=== PATIENT | male | born 1935 | race Caucasian/White ===

== ENCOUNTER → 2017-08-24 | Outpatient (CLI) | payer MEDICARE ==
[~2017-08-24] MED LIST: AEC81 PO; ATOR10TA69 PO; BACLOFEN PO; CELE200 PO; DONE10TA8 PO; ESCI10TA54 PO; EXEN10PE3 SQ; EXEN5PEN2 SQ; FERS325 PO; FINA5TAB2 PO; FURO-152 PO; GLIP5TAB11 PO; GLYB5TAB8 PO; HYDR-3421 PO; LABE200T PO; LOSA1TAB2 PO; MEMA10TA11 PO; MEMA5TAB7 PO; METF500T6 PO; MONT10TA21 PO; MULT-1203 PO; MULT-1289 PO; OMEP20TA25 PO; PRAV20TA PO; PREG150C PO; PREG50 PO; SILO4CAP PO; TRAM-355 PO; TRAM50TA4 PO; TRAZ-144 PO; VITA1CAP17 PO; VITAMIN D3 PO
== END | disposition home or self-care (01) ==
LOC: RAH 10:36
PROVIDERS: ATTEND Physical Medicine & Rehabilitation
DX: M48.062 Spinal stenosis, lumbar region with neurogenic claudication (principal)
CPT/HCPCS: 72148

== ENCOUNTER → 2017-09-06 | Outpatient (CLI) | payer MEDICARE ==
[~2017-09-06] MED LIST changes: +REGADENOSON 0.4 MG/5 ML PF SYG IVP SCH
== END | disposition home or self-care (01) ==
LOC: SHCH 07:57
PROVIDERS: ATTEND Internal Medicine Cardiovascular Disease
DX: I35.0 Nonrheumatic aortic (valve) stenosis (principal); R94.31 Abnormal electrocardiogram [ECG] [EKG]
CPT/HCPCS: 78452; 93017; 96374; A9500 ×2; J2785

== ENCOUNTER → 2017-09-08 | Outpatient (CLI) | payer MEDICARE ==
[~2017-09-08] MED LIST changes: -REGADENOSON 0.4 MG/5 ML PF SYG IVP SCH
== END | disposition home or self-care (01) ==
LOC: SHCH 07:57
PROVIDERS: ATTEND Internal Medicine Cardiovascular Disease
DX: I35.0 Nonrheumatic aortic (valve) stenosis (principal); R94.31 Abnormal electrocardiogram [ECG] [EKG]
CPT/HCPCS: 93306

== ENCOUNTER → 2017-09-09 | Outpatient (CLI) | payer MEDICARE | END | disposition home or self-care (01) | LOC: RAH 08:07 | PROVIDERS: ATTEND Internal Medicine Cardiovascular Disease | DX: N28.1 Cyst of kidney, acquired (principal); N20.0 Calculus of kidney; I10 Essential (primary) hypertension | CPT/HCPCS: 76770 ==

== ENCOUNTER → 2017-09-13 | Outpatient (CLI) | payer MEDICARE ==
[~2017-09-13] VITALS: Ht 177.8 cm; Wt 94.5 kg
[~2017-09-13] MED LIST changes: +CEFAZOLIN SODIUM 1 GM VIAL IVP SCH
[2017-09-13 09:35] VITALS: BP 122/72
[2017-09-13 09:56] LABS: BASOPHILS % (AUTO) 0.7 % (0.0-5.0); EOSINOPHILS % (AUTO) 1.6 % (0.0-8.0); HEMATOCRIT 44.3 % (42-54); MEAN CORPUSCULAR HEMOGLOBIN 31.2 pg (27.0-33.0); MEAN CORPUSCULAR HGB CONC 34.8 g/dL (32.0-36.0); MEAN CORPUSCULAR VOLUME 89.6 fL (79-99); MONOCYTES % (AUTO) 8.1 % (3.0-13.0); NEUTROPHILS % (AUTO) 71.6 % (40.0-77.0); PLATELET COUNT (AUTO) 197 K/uL (130-400); RED BLOOD CELL COUNT(AUTO) 4.95 MIL/uL (4.50-6.20); RED CELL DISTRIBUTION WIDTH 13.9 % (11.0-15.5); WHITE BLOOD COUNT (AUTO) 8.3 K/uL (4.8-10.8)
[2017-09-13 09:58] LABS: CREATININE 1.2 mg/dL (0.5-1.5)
== END | disposition home or self-care (01) ==
LOC: DAH 10:00 → EDSTATUS 10:30
PROVIDERS: ATTEND Neurological Surgery
DX: M47.896 Other spondylosis, lumbar region (principal); M48.061 Spinal stenosis, lumbar region without neurogenic claudication
CPT/HCPCS: 36415; 80048; 85025

== ENCOUNTER → 2018-03-29 | Outpatient (CLI) | payer MEDICARE ==
[~2018-03-29] MED LIST changes: -CEFAZOLIN SODIUM 1 GM VIAL IVP SCH; -EXEN5PEN2 SQ; -FURO-152 PO; -GLYB5TAB8 PO; -HYDR-3421 PO; -LABE200T PO; +LABE200T5 PO; -MEMA5TAB7 PO; +METF-444 PO; -METF500T6 PO; -PRAV20TA PO; -PREG50 PO; -SILO4CAP PO; -TRAM-355 PO; -TRAZ-144 PO; +TRAZ-185 PO
== END | disposition home or self-care (01) ==
LOC: RAH 11:17
PROVIDERS: ATTEND Physician Assistant Medical
DX: M51.16 Intervertebral disc disorders with radiculopathy, lumbar region (principal); M48.061 Spinal stenosis, lumbar region without neurogenic claudication
CPT/HCPCS: 72131

== ENCOUNTER 2018-07-08 20:13 | Emergency (ER) | payer MEDICARE ==
[2018-07-08] MEDS ORDERED: MORPHINE SULFATE 4 MG/1ML SYG ONE (21:19)
[2018-07-08] MEDS ORDERED: ONDANSETRON HCL 4 MG/2 ML VIAL ONE (21:19)
[2018-07-08] MEDS ORDERED: ACETAMINOPHEN 325 MG TAB ONE (21:23)
== END 2018-07-08 21:56 | disposition home or self-care (01) ==
LOC: EDH 20:13
DX: S00.83XA Contusion of other part of head, initial encounter (principal); S20.212A Contusion of left front wall of thorax, initial encounter; I10 Essential (primary) hypertension; E11.9 Type 2 diabetes mellitus without complications; I25.810 Atherosclerosis of coronary artery bypass graft(s) without angina pectoris; Z90.49 Acquired absence of other specified parts of digestive tract; Z98.890 Other specified postprocedural states; Z87.891 Personal history of nicotine dependence; W18.39XA Other fall on same level, initial encounter; Y93.01 Activity, walking, marching and hiking; Y92.89 Other specified places as the place of occurrence of the external cause; Y99.8 Other external cause status
CPT/HCPCS: 70450; 70486; 71100; 99284; J2270; J2405

== ENCOUNTER 2019-01-29 12:24 | Observation (INO) | payer MEDICARE ==
[~2019-01-29] VITALS: Ht 180.3 cm; Wt 80.6 kg
[2019-01-29 13:15] LABS: BASOPHILS % (AUTO) 1.1 % (0.0-5.0); EOSINOPHILS % (AUTO) 1.3 % (0.0-8.0); HEMATOCRIT 42.8 % (42-54); LYMPHOCYTES % (AUTO) 17.2 % (21.0-51.0); MEAN CORPUSCULAR HEMOGLOBIN 30.9 pg (27.0-33.0); MEAN CORPUSCULAR HGB CONC 34.2 g/dL (32.0-36.0); MEAN CORPUSCULAR VOLUME 90.2 fL (79-99); MONOCYTES % (AUTO) 8.9 % (3.0-13.0); NEUTROPHILS % (AUTO) 71.5 % (40.0-77.0); PLATELET COUNT (AUTO) 190 K/uL (130-400); RED BLOOD CELL COUNT(AUTO) 4.75 MIL/uL (4.50-6.20); RED CELL DISTRIBUTION WIDTH 15.1 % (11.0-15.5); WHITE BLOOD COUNT (AUTO) 5.7 K/uL (4.8-10.8)
[2019-01-29 13:22] LABS: CREATININE 1.1 mg/dL (0.5-1.5)
[2019-01-29 13:25] LABS: INR 1.06 (0.85-1.15); PARTIAL THROMBOPLASTIN TIME 28.2 SEC (26.3-35.5); PROTHROMBIN TIME 11.1 SEC (9.6-11.6)
[2019-01-29 13:28] LABS: BILIRUBIN,TOTAL 0.8 mg/dL (0.2-1.0); TOTAL PROTEIN, SERUM 6.8 g/dL (6.0-8.3)
[2019-01-29 13:38] LABS: B-TYPE NATRIURETIC PEPTIDE 350 pg/mL (0-100)
[2019-01-29] MEDS ORDERED: NITROGLYCERIN 1GM/1 INCH PACKET TD ONE (15:12)
[2019-01-29] MEDS ORDERED: FUROSEMIDE 10 MG/ML 4ML VIAL ONE (15:12)
[2019-01-29 15:21] LABS: APPEARANCE,URINE Clear (CLEAR); BILIRUBIN,URINE Negative (NEGATIVE); COLOR,URINE Yellow (YELLOW); GLUCOSE, URINE (UA) Negative (NEGATIVE); KETONES,URINE Negative (NEGATIVE); LEUKOCYTE ESTERASE ,URINE Negative (NEGATIVE); NITRATE,URINE Negative (NEGATIVE); OCCULT BLOOD,URINE Negative (NEGATIVE); PH,URINE >=9.0 (5.0-8.0); PROTEIN,URINE Negative (NEGATIVE); UROBILINOGEN,URINE 0.2 mg/dL (0.2-1.0)
[2019-01-29] MEDS ORDERED: ACETAMINOPHEN 325 MG TAB ONE (16:16)
[2019-01-29 19:07] LABS: CREATINE KINASE, TOTAL 272 U/L (21-232); MYOGLOBIN 393 ng/mL (10-92); THYROID STIMULATING HORMONE 2.14 uIU/mL (0.36-3.74); TROPONIN I < 0.04 ng/mL (0.00-0.06)
[2019-01-29] MEDS ORDERED: TRAMADOL HCL 50 MG TABLET ONE (21:10)
[2019-01-29 22:30] VITALS: BP 156/83
[2019-01-29] MEDS ORDERED: DEXTROSE 50%-WATER 50 ML DISP.SYRIN IV PRN (22:45)
[2019-01-29] MEDS ORDERED: GLUCAGON 1MG KIT 1 MG ML IM PRN (22:45)
[2019-01-29] MEDS ORDERED: SODIUM CHLORIDE 0.9% 10 ML VIAL IVP PRN (22:45)
[2019-01-29] MEDS ORDERED: CLOP75TA32 PO (22:59)
[2019-01-29] MEDS ORDERED: MAGNESIUM 2GM PREMIX 50ML 50 ML IV ONE (23:06)
[2019-01-29] MEDS: NITROGLYCERIN 1GM/1 INCH PACKET TD SCH (23:11)
[2019-01-29] MEDS ORDERED: MAGNESIUM 2GM PREMIX 50ML 50 ML IV PRN (23:15)
[2019-01-30] VITALS (9 sets, daily range): BP systolic 116–161; BP diastolic 60–79
[2019-01-30 00:55] LABS: CREATINE KINASE, TOTAL 292 U/L (21-232); MYOGLOBIN 439 ng/mL (10-92); TROPONIN I < 0.04 ng/mL (0.00-0.06)
[2019-01-30] MEDS ORDERED: ACETAMINOPHEN 325 MG TAB ONE (03:15)
[2019-01-30] MEDS ORDERED: ACETAMINOPHEN 325 MG TAB PO PRN (03:15)
[2019-01-30 04:40] LABS: CREATININE 1.3 mg/dL (0.5-1.5); POTASSIUM 3.7 mmol/L (3.5-5.1); THYROID STIMULATING HORMONE 1.86 uIU/mL (0.36-3.74)
[2019-01-30] MEDS: NITROGLYCERIN 1GM/1 INCH PACKET TD SCH (06:10)
[2019-01-30] MEDS ORDERED: FAMOTIDINE 20MG TAB 20 MG TAB PO SCH (09:00)
[2019-01-30] MEDS ORDERED: FUROSEMIDE 10 MG/ML 2ML VIAL IVP SCH (09:00)
[2019-01-30] MEDS ORDERED: ENOXAPARIN SODIUM 40 MG/0.4 ML SYRINGE SQ SCH (09:00)
[2019-01-30] MEDS ORDERED: TRAZODONE HCL 50 MG PO PRN (10:00)
[2019-01-30] MEDS ORDERED: LOSARTAN/HYDROCHLOROTHIAZIDE 50-12.5MG TABLET PO SCH (10:00)
[2019-01-30] MEDS ORDERED: TRAMADOL HCL 50 MG TABLET PO PRN (10:00)
--- NOTE | 2019-01-30 10:00 | NUR ---
ROUNDS HIMANSHU FRANKLIN CERTIFIED ADDICTION COUNSELOR IN TO SEE PATIENT. SHE SPOKE WITH PATIENT REGARDING POC. ORDERS TO RESTART HOME MEDICATIONS AND PATIENT MAY BE DISCHARGED HOME TODAY AFTER ECHO IS COMPLETE. DOES NOT NEED TO WAIT FOR ECHO RESULTS. PT TO FOLLOW UP WITH DR. ORTIZ THIS WEEK.
[2019-01-30] MEDS ORDERED: PANTOPRAZOLE SODIUM 40 MG TABLET.DR PO SCH (12:00)
[2019-01-30] MEDS ORDERED: FERROUS SULFATE 325 MG TABLET.DR PO SCH (12:00)
[2019-01-30] MEDS ORDERED: BYETTA 10 MCG SQ SCH (16:30)
[2019-01-30] MEDS ORDERED: LABETALOL HCL 200 MG TABLET PO SCH (21:00)
[2019-01-30] MEDS ORDERED: MEMANTINE HCL 5 MG TABLET PO SCH (21:00)
[2019-01-30] MEDS ORDERED: MONTELUKAST SODIUM 10 MG TAB PO SCH (21:00)
[2019-01-30] MEDS ORDERED: PREGABALIN 75 MG CAPSULE PO SCH (21:00)
[2019-01-30] MEDS ORDERED: ATORVASTATIN CALCIUM 10 MG TABLET PO SCH (21:00)
[2019-01-30] MEDS ORDERED: FINASTERIDE 5 MG TABLET PO SCH (21:00)
[2019-01-30] MEDS ORDERED: DONEPEZIL HCL 5 MG TAB PO SCH (21:00)
[2019-01-30] MEDS ORDERED: CLOPIDOGREL BISULFATE 75 MG TAB PO SCH (21:00)
[2019-01-31] MEDS ORDERED: ASPIRIN 81 MG EC TAB PO SCH (09:00)
[2019-01-31] MEDS ORDERED: VITAMIN B COMPLEX 1 CAPSULE PO SCH (09:00)
[2019-01-31] MEDS ORDERED: MULTIVITAMIN WITH MINERALS TABLET PO SCH (09:00)
[2019-01-31] MEDS ORDERED: NON-FORMULARY MEDICATION 1 EACH (Multivitamin (Multi Vitamin Daily) 1 EACH) PO SCH (09:00)
[2019-01-31] MEDS ORDERED: **HM** VIT D3 PO SCH (09:00)
[2019-01-31] MEDS ORDERED: CITALOPRAM 20 MG TABLET PO SCH (09:00)
== END 2019-01-30 17:23 | disposition home or self-care (01) ==
LOC: EDH 12:24 → EDHIP 16:20 → INTOOBSV 16:20 → 2AH 20:11 → EDHIP 21:17 → 2AH 21:48
PROVIDERS: ADMIT Family Medicine; ATTEND Family Medicine
DX: I11.0 Hypertensive heart disease with heart failure (principal); I50.31 Acute diastolic (congestive) heart failure; E11.9 Type 2 diabetes mellitus without complications; E78.5 Hyperlipidemia, unspecified; I25.10 Atherosclerotic heart disease of native coronary artery without angina pectoris; I35.0 Nonrheumatic aortic (valve) stenosis; K21.9 Gastro-esophageal reflux disease without esophagitis; N40.0 Benign prostatic hyperplasia without lower urinary tract symptoms; F03.90 Unspecified dementia, unspecified severity, without behavioral disturbance, psychotic disturbance, mood disturbance, and anxiety; F32.9 Major depressive disorder, single episode, unspecified; Z79.899 Other long term (current) drug therapy; Z95.0 Presence of cardiac pacemaker; Z95.2 Presence of prosthetic heart valve; Z96.611 Presence of right artificial shoulder joint; Z96.651 Presence of right artificial knee joint; Z82.0 Family history of epilepsy and other diseases of the nervous system; Z82.3 Family history of stroke; Z82.49 Family history of ischemic heart disease and other diseases of the circulatory system; Z82.5 Family history of asthma and other chronic lower respiratory diseases; Z83.3 Family history of diabetes mellitus
CPT/HCPCS: 36415 ×2; 71045; 80048; 80053; 81003; 82550 ×3; 82948 ×4; 83735 ×2; 83874 ×2; 83880 ×2; 84443 ×2; 84484 ×3; 85025; 85610; 85730; 93005 ×2; 93306; 96365; 96366; 96372; 96375; 99291; G0378 ×25; J1650; J1940 ×2; J3475

== ENCOUNTER 2020-02-28 05:48 | Day surgery (SDC) | payer MEDICARE ==
[2020-02-28] VITALS (12 sets, daily range): BP systolic 93–128; BP diastolic 44–66
[~2020-02-28 05:48] MED LIST changes: -BACLOFEN PO; -CELE200 PO; +CLOP75TA32 PO; -GLIP5TAB11 PO; -METF-444 PO
[2020-02-28] MEDS ORDERED: SODIUM CHLORIDE 0.9% 1000ML 1,000 ML IV ONE (06:18)
--- NOTE | 2020-02-28 08:15 | NUR ---
dc dc instructions given to pt spouse over the phone, pt verbalized understanding. instructed to f/u with dr beckford. verbalized understanding
== END 2020-02-28 08:30 | disposition home or self-care (01) ==
LOC: DAH 05:48 → ENDO 05:48
PROVIDERS: ATTEND Internal Medicine Gastroenterology
DX: R19.5 Other fecal abnormalities (principal); R13.10 Dysphagia, unspecified; K57.30 Diverticulosis of large intestine without perforation or abscess without bleeding; K92.2 Gastrointestinal hemorrhage, unspecified; K29.50 Unspecified chronic gastritis without bleeding; K31.89 Other diseases of stomach and duodenum; K44.9 Diaphragmatic hernia without obstruction or gangrene; K22.8 Other specified diseases of esophagus; I10 Essential (primary) hypertension; I25.10 Atherosclerotic heart disease of native coronary artery without angina pectoris; F41.9 Anxiety disorder, unspecified; F32.9 Major depressive disorder, single episode, unspecified; E03.9 Hypothyroidism, unspecified; E11.9 Type 2 diabetes mellitus without complications; M19.90 Unspecified osteoarthritis, unspecified site; E78.5 Hyperlipidemia, unspecified; Z98.890 Other specified postprocedural states; Z87.442 Personal history of urinary calculi; Z79.899 Other long term (current) drug therapy; Z79.82 Long term (current) use of aspirin; Z95.2 Presence of prosthetic heart valve; Z90.89 Acquired absence of other organs; Z90.49 Acquired absence of other specified parts of digestive tract; Z98.49 Cataract extraction status, unspecified eye; Z95.0 Presence of cardiac pacemaker; Z87.891 Personal history of nicotine dependence; Z72.89 Other problems related to lifestyle
CPT/HCPCS: 43239; 45378; 82948; 88305; A4215; A4221; A4222; A4223; A4606; A4620; A4663; J7030

== ENCOUNTER → 2020-08-16 | Outpatient (CLI) | payer OTHER, MEDICARE ==
[~2020-08-16] MED LIST changes: -CLOP75TA32 PO; -ESCI10TA54 PO; +ESCI10TA70 PO; -EXEN10PE3 SQ; -MULT-1203 PO; -MULT-1289 PO; -TRAM50TA4 PO
== END | disposition home or self-care (01) ==
LOC: RAH 12:10
PROVIDERS: ATTEND Internal Medicine
DX: M47.812 Spondylosis without myelopathy or radiculopathy, cervical region (principal)
CPT/HCPCS: 72040

== ENCOUNTER → 2022-08-27 | Outpatient (CLI) | payer OTHER ==
[~2022-08-27] MED LIST changes: +ESCI-8 PO; -ESCI10TA70 PO; -LABE200T5 PO; +LABE200T7 PO; +LOSA-422 PO; -LOSA1TAB2 PO; +OMEP20TA20 PO; -OMEP20TA25 PO
== END | disposition home or self-care (01) ==
LOC: RAH 09:55
PROVIDERS: ATTEND Student in an Organized Health Care Education/Training Program
DX: I73.9 Peripheral vascular disease, unspecified (principal); I25.10 Atherosclerotic heart disease of native coronary artery without angina pectoris; R60.9 Edema, unspecified
CPT/HCPCS: 93925; 93970

== ENCOUNTER → 2022-10-15 | Outpatient (CLI) | payer OTHER ==
[~2022-10-15] MED LIST changes: +GADOTERATE MEGLUMINE 5 MMOL/10 ML VIAL IV ONE; +MONT-47 PO; -MONT10TA21 PO
== END | disposition home or self-care (01) ==
LOC: RAH 14:07
PROVIDERS: ATTEND Student in an Organized Health Care Education/Training Program
DX: M19.032 Primary osteoarthritis, left wrist (principal); M25.832 Other specified joint disorders, left wrist; G56.00 Carpal tunnel syndrome, unspecified upper limb
CPT/HCPCS: 73223; A9575

== ENCOUNTER 2023-07-23 18:26 | Observation (INO) | payer OTHER ==
[~2023-07-23] VITALS: Ht 180.3 cm; Wt 90.7 kg
[~2023-07-23 18:26] MED LIST changes: +DOCU100C33 PO; +DULO30CA52 PO; -FERS325 PO; -FINA5TAB2 PO; +FINA5TAB41 PO; +FLUT16H EN; +FURO20TA4 PO; -GADOTERATE MEGLUMINE 5 MMOL/10 ML VIAL IV ONE; +GLIP5TAB15 PO; -LOSA-422 PO; +LOSA50TA64 PO; -MEMA10TA11 PO; +POTA-187 PO; -PREG150C PO; +PREG150C47 PO; +PREG300C20 PO; +PYRI100T10 PO; +TAMS-1 PO; +TRAZ-258 PO; +VITA-348 PO; -VITA1CAP17 PO; -VITAMIN D3 PO; +ZINC50TA64 PO
[2023-07-23 18:44] LABS: BASOPHILS # (AUTO) 0.04 K/uL (0.00-0.20); BASOPHILS % (AUTO) 0.7 % (0.0-5.0); EOSINOPHILS # (AUTO) 0.14 K/uL (0.00-0.70); EOSINOPHILS % (AUTO) 2.5 % (0.0-8.0); IMMATURE GRANULOCYTE ABSOLUTE 0.02 K/uL (0-1); LYMPHOCYTES # (AUTO) 1.4 K/uL (1.0-4.8); MEAN CORPUSCULAR HEMOGLOBIN 29.6 pg (27.0-33.0); MEAN CORPUSCULAR HGB CONC 33.6 g/dL (32.0-36.0); MONOCYTES # (AUTO) 0.7 K/uL (0.1-1.0); MONOCYTES % (AUTO) 11.6 % (3.0-13.0); NEUTROPHILS # (AUTO) 3.5 K/uL (1.8-7.7); NEUTROPHILS % (AUTO) 60.8 % (40.0-77.0); PLATELET COUNT (AUTO) 188 K/uL (130-400); RED CELL DISTRIBUTION WIDTH 13.6 % (11.0-15.5); WHITE BLOOD COUNT (AUTO) 5.7 K/uL (4.8-10.8)
[2023-07-23 19:18] LABS: SARS-CoV-2, RNA, NAAT NEGATIVE SARS CoV-2 (NEGATIVE)
[2023-07-23 19:23] LABS: CREATININE 1.2 mg/dL (0.5-1.5); POTASSIUM 4.8 mmol/L (3.5-5.1)
[2023-07-23 19:30] LABS: ALBUMIN 3.9 g/dL (3.5-5.0); BILIRUBIN,TOTAL 0.6 mg/dL (0.2-1.0); TOTAL PROTEIN, SERUM 7.3 g/dL (6.0-8.3)
[2023-07-23 19:30] LABS: INFLUENZA TYPE A Negative For Type A (NEGATIVE); INFLUENZA TYPE B Negative For Type B (NEGATIVE)
[2023-07-23] MEDS ORDERED: NITROGLYCERIN 1GM OINT 1 INCH/1GM TD ONE (21:30)
[2023-07-23] MEDS ORDERED: ASPIRIN 325MG TAB PO ONE (21:30)
[2023-07-23] MEDS ORDERED: ENOXAPARIN SODIUM 100 MG/1 ML SQ ONE (21:30)
[2023-07-24] MEDS ORDERED: LACTULOSE 20 GM/30 ML UDCUP PO PRN (00:30)
[2023-07-24] MEDS ORDERED: ONDANSETRON 4MG INJ IVP PRN (00:30)
[2023-07-24] MEDS ORDERED: ACETAMINOPHEN 325 MG TAB PO PRN (00:30)
[2023-07-24] MEDS ORDERED: ACETAMINOPHEN 650 MG SUPPOSITORY RC PRN (00:30)
[2023-07-24] MEDS ORDERED: HYDRALAZINE 20MG/ML VIAL IV PRN (00:30)
[2023-07-24] MEDS ORDERED: ALBUTEROL 0.083% 2.5 MG/3 ML INH IH PRN (00:30)
[2023-07-24] MEDS ORDERED: DEXTROSE 50%-WATER 50 ML DISP.SYRIN IV PRN (01:00)
[2023-07-24] MEDS ORDERED: GLUCAGON 1MG KIT 1 MG ML IM PRN (01:00)
[2023-07-24 01:15] VITALS: PULSE 81; RESP 20; O2SAT 95
[2023-07-24 01:36] LABS: ABG BASE EXCESS 1.8 mmol/L (-2.0-3.0); ABG HCO3 26.6 mmol/L (21.0-28.0); ABG OXYGEN SATURATION 93.4 % (95.0-99.0); ABG PCO2 42 mmHg (35-48); ABG PH 7.416 (7.35-7.450); PO2, ARTERIAL BG 66.2 mmHg (83.0-108.0); VENT MODE, BG ROOMAIR (ROOM AIR)
[2023-07-24 01:41] LABS: HEMOGLOBIN A1C 6.4 % (4.0-6.0)
[2023-07-24] MEDS ORDERED: IOHEXOL 350 MG/ML 100ML INFUS..BTL IV ONE (03:13)
[2023-07-24] MEDS: CEFTRIAXONE 2GM VIAL IVPB SCH (04:30)
[2023-07-24] MEDS ORDERED: DOXYCYCLINE 100MG+NS 250ML 250 ML IV SCH (04:30)
[2023-07-24] MEDS ORDERED: CEFTRIAXONE 1G VIAL ONE (07:19)
[2023-07-24] MEDS: INSULIN HUMULIN R 100 UNIT/ML 3ML SQ SCH ×4 (07:30→20:46)
[2023-07-24 08:21] LABS: BASOPHILS # (AUTO) 0.04 K/uL (0.00-0.20); BASOPHILS % (AUTO) 0.8 % (0.0-5.0); HEMATOCRIT 42.9 % (42-54); IMMATURE GRANULOCYTE ABSOLUTE 0.01 K/uL (0-1); LYMPHOCYTES # (AUTO) 0.9 K/uL (1.0-4.8); LYMPHOCYTES % (AUTO) 18.1 % (21.0-51.0); MEAN CORPUSCULAR HEMOGLOBIN 29.1 pg (27.0-33.0); MEAN CORPUSCULAR HGB CONC 33.1 g/dL (32.0-36.0); MEAN CORPUSCULAR VOLUME 87.9 fL (79-99); MONOCYTES # (AUTO) 0.5 K/uL (0.1-1.0); MONOCYTES % (AUTO) 9.3 % (3.0-13.0); NEUTROPHILS # (AUTO) 3.5 K/uL (1.8-7.7); NEUTROPHILS % (AUTO) 69.6 % (40.0-77.0); PLATELET COUNT (AUTO) 193 K/uL (130-400); RED BLOOD CELL COUNT(AUTO) 4.88 MIL/uL (4.50-6.20); RED CELL DISTRIBUTION WIDTH 13.7 % (11.0-15.5); WHITE BLOOD COUNT (AUTO) 5.1 K/uL (4.8-10.8)
[2023-07-24 08:31] LABS: INR 1.03 (0.85-1.15); PROTHROMBIN TIME 11.9 SEC (9.6-11.6)
[2023-07-24 08:45] LABS: CREATININE 1.3 mg/dL (0.5-1.5); MAGNESIUM 1.7 mg/dL (1.80-2.40); PHOSPHORUS 3.8 mg/dL (2.5-4.9); POTASSIUM 4.2 mmol/L (3.5-5.1); THYROID STIMULATING HORMONE 1.43 uIU/mL (0.36-3.74)
[2023-07-24] MEDS: ENOXAPARIN SODIUM 40 MG/0.4 ML SYRINGE SQ SCH (09:10)
[2023-07-24] MEDS: FUROSEMIDE 20MG VIAL IV SCH ×2 (09:10→20:43)
[2023-07-24] MEDS: PANTOPRAZOLE 40 MG TAB DR PO SCH (09:10)
[2023-07-24] MEDS: DOCUSATE SODIUM 100 MG CAP PO SCH ×2 (09:10→20:43)
[2023-07-24] MEDS ORDERED: MEMA5TAB42 PO (10:17)
[2023-07-24] MEDS ORDERED: LABE100T7 PO (10:17)
[2023-07-24] MEDS ORDERED: LABE200T7 PO (10:17)
[2023-07-24] MEDS ORDERED: FUROSEMIDE 20MG VIAL IV ONE (18:00)
[2023-07-24] MEDS: DOXYCYCLINE 100MG+NS 250ML 250 ML IV SCH (18:58)
[2023-07-24 19:42] LABS: ABG HCO3 24.3 mmol/L (21.0-28.0); ABG OXYGEN SATURATION 95.6 % (95.0-99.0); ABG PCO2 39 mmHg (35-48); ABG PH 7.417 (7.35-7.450); PO2, ARTERIAL BG 76.9 mmHg (83.0-108.0); VENT MODE, BG ROOMAIR (ROOM AIR)
[2023-07-24 20:14] VITALS: PULSE 90; RESP 22; O2SAT 95
[2023-07-24] MEDS ORDERED: TEMAZEPAM 15 MG CAPSULE PO PRN (20:30)
[2023-07-25] MEDS ORDERED: HYDR-4154 PO (02:32)
[2023-07-25] MEDS: CEFTRIAXONE 2GM VIAL IVPB SCH (04:59)
[2023-07-25 06:41] LABS: BASOPHILS # (AUTO) 0.04 K/uL (0.00-0.20); BASOPHILS % (AUTO) 0.5 % (0.0-5.0); EOSINOPHILS # (AUTO) 0.04 K/uL (0.00-0.70); EOSINOPHILS % (AUTO) 0.5 % (0.0-8.0); HEMATOCRIT 43.5 % (42-54); IMMATURE GRANULOCYTE ABSOLUTE 0.04 K/uL (0-1); LYMPHOCYTES # (AUTO) 0.7 K/uL (1.0-4.8); LYMPHOCYTES % (AUTO) 8.7 % (21.0-51.0); MEAN CORPUSCULAR HEMOGLOBIN 30.3 pg (27.0-33.0); MEAN CORPUSCULAR HGB CONC 34.5 g/dL (32.0-36.0); MEAN CORPUSCULAR VOLUME 87.9 fL (79-99); MONOCYTES # (AUTO) 0.6 K/uL (0.1-1.0); MONOCYTES % (AUTO) 7.7 % (3.0-13.0); NEUTROPHILS # (AUTO) 6.4 K/uL (1.8-7.7); NEUTROPHILS % (AUTO) 82.1 % (40.0-77.0); PLATELET COUNT (AUTO) 189 K/uL (130-400); RED BLOOD CELL COUNT(AUTO) 4.95 MIL/uL (4.50-6.20); RED CELL DISTRIBUTION WIDTH 13.5 % (11.0-15.5); WHITE BLOOD COUNT (AUTO) 7.8 K/uL (4.8-10.8)
[2023-07-25 06:52] LABS: CREATININE 1.4 mg/dL (0.5-1.5); MAGNESIUM 1.6 mg/dL (1.80-2.40); PHOSPHORUS 3.9 mg/dL (2.5-4.9); POTASSIUM 3.9 mmol/L (3.5-5.1)
[2023-07-25] MEDS: INSULIN HUMULIN R 100 UNIT/ML 3ML SQ SCH ×2 (07:30→11:30)
[2023-07-25 08:35] LABS: ABG BASE EXCESS 2.3 mmol/L (-2.0-3.0); ABG HCO3 26.7 mmol/L (21.0-28.0); ABG OXYGEN SATURATION 96.1 % (95.0-99.0); ABG PCO2 41 mmHg (35-48); ABG PH 7.432 (7.35-7.450); DEVICE COMMENT LR; VENT MODE, BG RA (ROOM AIR)
[2023-07-25 08:46] VITALS: PULSE 87; RESP 18
[2023-07-25] MEDS ORDERED: FLUTICASONE PROPIONATE 50MCG/SPRAY 16 GM BOTTLE EN SCH (09:00)
[2023-07-25] MEDS: ENOXAPARIN SODIUM 40 MG/0.4 ML SYRINGE SQ SCH (09:37)
[2023-07-25] MEDS: PANTOPRAZOLE 40 MG TAB DR PO SCH (09:37)
[2023-07-25] MEDS: DOXYCYCLINE 100MG+NS 250ML 250 ML IV SCH (09:37)
[2023-07-25] MEDS: FUROSEMIDE 20MG VIAL IV SCH (09:37)
[2023-07-25] MEDS: DOCUSATE SODIUM 100 MG CAP PO SCH (09:38)
[2023-07-25] MEDS ORDERED: MAGNESIUM 2GM PREMIX 50ML 50 ML IV SCH (11:00)
[2023-07-25 12:04] VITALS: O2SAT 97
[2023-07-25 16:01] VITALS: BP 141/72; PULSE 84; RESP 18
== END 2023-07-25 15:55 | disposition home or self-care (01) ==
LOC: EDH 18:26 → EDHIP 07-24 00:23
PROVIDERS: ADMIT Internal Medicine Pulmonary Disease; ATTEND Internal Medicine Pulmonary Disease
DX: J96.01 Acute respiratory failure with hypoxia (principal); Z20.822 Contact with and (suspected) exposure to COVID-19; I11.0 Hypertensive heart disease with heart failure; I50.33 Acute on chronic diastolic (congestive) heart failure; E11.65 Type 2 diabetes mellitus with hyperglycemia; N40.0 Benign prostatic hyperplasia without lower urinary tract symptoms; G30.9 Alzheimer's disease, unspecified; F02.80 Dementia in other diseases classified elsewhere, unspecified severity, without behavioral disturbance, psychotic disturbance, mood disturbance, and anxiety; I38 Endocarditis, valve unspecified; R79.89 Other specified abnormal findings of blood chemistry; E78.5 Hyperlipidemia, unspecified; K21.9 Gastro-esophageal reflux disease without esophagitis; M79.89 Other specified soft tissue disorders; R53.81 Other malaise; Z87.01 Personal history of pneumonia (recurrent); Z79.82 Long term (current) use of aspirin; Z95.0 Presence of cardiac pacemaker
CPT/HCPCS: 84484 ×2; 80053; 85025 ×3; 87804 ×2; 36415 ×3; 87635; 71045; 93005 ×2; 96376 ×2; 96372 ×2; 96365; 96366 ×2; 96375; 99285; 83036; 84443; 83735 ×2; 84100 ×2; 80061; 80048 ×2; 82803 ×3; 83880; 85378; 85610; 85651; 82948 ×4; 86140; 71270; 93306; 93970; 36600 ×3; 84145; 96367; 97161; 97116; 97530; 94640; J1650 ×3; G0378 ×37; J0696 ×2; J3490 ×4; J1940 ×4; Q9967; J3475; G8980-CI; G8983-CI

== ENCOUNTER 2023-09-03 11:08 | Emergency (ER) | payer OTHER ==
[~2023-09-03] VITALS: Ht 154.9 cm; Wt 95.3 kg
[~2023-09-03 11:08] MED LIST changes: -ESCI-8 PO; -FLUT16H EN; -GLIP5TAB15 PO; +HYDR50TA37 PO; +LABE100T7 PO; +MEMA5TAB42 PO; -MONT-47 PO; -PREG150C47 PO; -PREG300C20 PO; -TRAZ-258 PO
[2023-09-03] MEDS ORDERED: CYCLOBENZAPRINE HCL 10 MG TABLET PO ONE (13:30)
[2023-09-03 14:01] VITALS: BP 164/84; PULSE 87; RESP 12; O2SAT 95
== END 2023-09-03 13:51 | disposition left against medical advice (07) ==
LOC: EDH 11:08
DX: S00.01XA Abrasion of scalp, initial encounter (principal); M25.512 Pain in left shoulder; R07.81 Pleurodynia; E11.9 Type 2 diabetes mellitus without complications; E78.00 Pure hypercholesterolemia, unspecified; I10 Essential (primary) hypertension; W18.39XA Other fall on same level, initial encounter; Y93.89 Activity, other specified; Y92.89 Other specified places as the place of occurrence of the external cause; Y99.8 Other external cause status
CPT/HCPCS: 71101; 73030

== ENCOUNTER → 2024-01-10 | Outpatient (CLI) | payer OTHER ==
[~2024-01-10] MED LIST changes: +MEMA5TAB16 PO; -MEMA5TAB42 PO
== END | disposition home or self-care (01) ==
LOC: SHCH 14:18
PROVIDERS: ATTEND Student in an Organized Health Care Education/Training Program
DX: I49.3 Ventricular premature depolarization (principal); R60.9 Edema, unspecified; I73.9 Peripheral vascular disease, unspecified; Z95.0 Presence of cardiac pacemaker; I44.7 Left bundle-branch block, unspecified; E78.5 Hyperlipidemia, unspecified; I10 Essential (primary) hypertension; R06.02 Shortness of breath; G56.02 Carpal tunnel syndrome, left upper limb; Z79.899 Other long term (current) drug therapy
CPT/HCPCS: 93970

== ENCOUNTER 2024-03-01 18:52 | Observation (INO) | payer OTHER ==
[~2024-03-01] VITALS: Ht 180.3 cm; Wt 84.4 kg
[2024-03-01 19:29] LABS: BASOPHILS # (AUTO) 0.05 K/uL (0.00-0.20); BASOPHILS % (AUTO) 0.7 % (0.0-5.0); EOSINOPHILS # (AUTO) 0.08 K/uL (0.00-0.70); EOSINOPHILS % (AUTO) 1.1 % (0.0-8.0); HEMATOCRIT 43.1 % (42-54); IMMATURE GRANULOCYTE ABSOLUTE 0.03 K/uL (0-1); LYMPHOCYTES # (AUTO) 1.1 K/uL (1.0-4.8); LYMPHOCYTES % (AUTO) 15.5 % (21.0-51.0); MEAN CORPUSCULAR HEMOGLOBIN 30.1 pg (27.0-33.0); MEAN CORPUSCULAR HGB CONC 33.9 g/dL (32.0-36.0); MEAN CORPUSCULAR VOLUME 88.9 fL (79-99); MONOCYTES # (AUTO) 0.7 K/uL (0.1-1.0); MONOCYTES % (AUTO) 9.4 % (3.0-13.0); NEUTROPHILS # (AUTO) 5.1 K/uL (1.8-7.7); NEUTROPHILS % (AUTO) 72.9 % (40.0-77.0); PLATELET COUNT (AUTO) 216 K/uL (130-400); RED BLOOD CELL COUNT(AUTO) 4.85 MIL/uL (4.50-6.20)
[2024-03-01 20:00] LABS: CREATININE 1.3 mg/dL (0.5-1.3); POTASSIUM 3.9 mmol/L (3.5-5.1)
[2024-03-01 20:04] LABS: ALBUMIN 3.9 g/dL (3.5-5.0); BILIRUBIN,TOTAL 0.8 mg/dL (0.2-1.0); TOTAL PROTEIN, SERUM 6.8 g/dL (6.0-8.3)
[2024-03-01] MEDS ORDERED: IOHEXOL-350 75 ML VIAL IV ONE (20:15)
[2024-03-01] MEDS ORDERED: FINA5TAB41 PO (20:53)
[2024-03-01] MEDS ORDERED: MEMA5TAB16 PO (20:53)
[2024-03-01] MEDS ORDERED: LOPE2CAP PO (20:53)
[2024-03-01] MEDS ORDERED: DULA3PEN SQ (22:30)
[2024-03-01] MEDS ORDERED: acetaMINOPHEN 325 MG TAB PO PRN (23:00)
[2024-03-01] MEDS ORDERED: ONDANSETRON 4MG INJ IVP PRN (23:00)
[2024-03-01] MEDS ORDERED: LABETALOL 20MG SYG IV PRN (23:00)
[2024-03-01] MEDS ORDERED: acetaMINOPHEN 650 MG SUPPOSITORY RC PRN (23:00)
[2024-03-01] MEDS ORDERED: HYDROCODONE/ACETAMINOPHEN 5/325 MG TAB PO PRN (23:00)
[2024-03-01] MEDS: LACTATED RINGERS 1000ML 1,000 ML IV SCH (23:39)
[2024-03-01] MEDS: ceFAZolin SODIUM 2 GM VIAL IVPB SCH (23:39)
[2024-03-02 01:37] LABS: APPEARANCE,URINE CLEAR (CLEAR); BILIRUBIN,URINE NEGATIVE (NEGATIVE); COLOR,URINE YELLOW (YELLOW); GLUCOSE, URINE (UA) NEGATIVE (NEGATIVE); KETONES,URINE NEGATIVE (NEGATIVE); LEUKOCYTE ESTERASE ,URINE NEGATIVE Leu/uL (NEGATIVE); NITRATE,URINE NEGATIVE (NEGATIVE); OCCULT BLOOD,URINE NEGATIVE (NEGATIVE); PH,URINE 6.5 (5.0-8.0); PROTEIN,URINE 20 mg/dL (NEGATIVE); UROBILINOGEN,URINE 0.2 mg/dL (0.2-1.0)
[2024-03-02 01:40] LABS: BACTERIA,URINE FEW /HPF (None Seen); MUCUS,URINE RARE LPF (None Seen); RBC,URINE 0-1 /HPF (0-1); SQUAMOUS EPITHELIAL CELL,UR RARE /HPF (0-2); WBC,URINE 0-1 /HPF (0-1)
[2024-03-02 07:03] LABS: BASOPHILS # (AUTO) 0.04 K/uL (0.00-0.20); BASOPHILS % (AUTO) 0.6 % (0.0-5.0); EOSINOPHILS # (AUTO) 0.06 K/uL (0.00-0.70); EOSINOPHILS % (AUTO) 0.9 % (0.0-8.0); HEMATOCRIT 42.1 % (42-54); IMMATURE GRANULOCYTE ABSOLUTE 0.02 K/uL (0-1); LYMPHOCYTES % (AUTO) 15.1 % (21.0-51.0); MEAN CORPUSCULAR HEMOGLOBIN 29.9 pg (27.0-33.0); MEAN CORPUSCULAR VOLUME 88.1 fL (79-99); MONOCYTES # (AUTO) 0.6 K/uL (0.1-1.0); MONOCYTES % (AUTO) 9.1 % (3.0-13.0); NEUTROPHILS # (AUTO) 4.7 K/uL (1.8-7.7); PLATELET COUNT (AUTO) 203 K/uL (130-400); RED BLOOD CELL COUNT(AUTO) 4.78 MIL/uL (4.50-6.20); WHITE BLOOD COUNT (AUTO) 6.4 K/uL (4.8-10.8)
[2024-03-02] MEDS: INSULIN HUMULIN R 100 UNIT/ML 3ML SQ SCH (07:26)
[2024-03-02 07:29] LABS: CREATININE 1.3 mg/dL (0.5-1.3); PHOSPHORUS 3.7 mg/dL (2.5-4.9); POTASSIUM 4.1 mmol/L (3.5-5.1); THYROID STIMULATING HORMONE 0.87 uIU/mL (0.36-3.74)
[2024-03-02 07:50] LABS: B-TYPE NATRIURETIC PEPTIDE 97 pg/mL (0-100)
[2024-03-02] MEDS: FAMOTIDINE 20MG VIAL IV SCH (08:09)
[2024-03-02] MEDS: ASCORBIC ACID 500 MG TAB PO SCH (08:09)
[2024-03-02] MEDS: POLYETHYLENE GLYCOL 3350 17 GM POWD.PACK PO SCH (08:09)
[2024-03-02] MEDS: ENOXAPARIN SODIUM 40 MG/0.4 ML SYRINGE SQ SCH (08:10)
[2024-03-03] VITALS (7 sets, daily range): BP systolic 140–189; BP diastolic 68–101; PULSE 75–77; RESP 18; O2SAT 95
[2024-03-03] MEDS: hydrALAZine 20MG/ML VIAL IV PRN (03:17)
[2024-03-03 05:26] LABS: HEMATOCRIT 47.7 % (42-54); MEAN CORPUSCULAR HEMOGLOBIN 30.1 pg (27.0-33.0); MEAN CORPUSCULAR HGB CONC 34.2 g/dL (32.0-36.0); RED BLOOD CELL COUNT(AUTO) 5.42 MIL/uL (4.50-6.20); RED CELL DISTRIBUTION WIDTH 13.9 % (11.0-15.5); WHITE BLOOD COUNT (AUTO) 6.9 K/uL (4.8-10.8)
[2024-03-03 05:50] LABS: CREATININE 1.3 mg/dL (0.5-1.3); MAGNESIUM 1.8 mg/dL (1.80-2.40)
[2024-03-03] MEDS ORDERED: POTASSIUM CHLORIDE 20MEQ/100ML 100 ML IV PRN (06:30)
[2024-03-03] MEDS ORDERED: KCL 20 MEQ ERTAB PO PRN (06:30)
[2024-03-03] MEDS ORDERED: POTASSIUM CHLORIDE 10% ELIXIR 20 MEQ/15 ML UDCUP PO PRN (06:30)
[2024-03-03] MEDS ORDERED: MAGNESIUM 2GM PREMIX 50ML 50 ML IV PRN (06:30)
[2024-03-06 12:10] LABS: C DIFFICILE TOXIN A/B Not Detected (Not Detected); ENTEROAGGREGATIVE ECOLI Not Detected (Not Detected); GIARDIA LAMBLIA Not Detected (Not Detected); PLESIOMONAS SHIGELOIDES Not Detected (Not Detected); SAPOVIRUS Not Detected (Not Detected); SHIGELLA/ENTEROINVASIVE E COLI Not Detected (Not Detected); VIBRIO Not Detected (Not Detected); VIBRIO CHOLERAE Not Detected (Not Detected)
== END 2024-03-03 14:11 | disposition home or self-care (01) ==
LOC: EDH 18:52 → EDHIP 22:55 → 3DH 03-02 23:13
PROVIDERS: ADMIT Internal Medicine Critical Care Medicine; ATTEND Internal Medicine Critical Care Medicine
DX: E11.65 Type 2 diabetes mellitus with hyperglycemia (principal); I10 Essential (primary) hypertension; N40.0 Benign prostatic hyperplasia without lower urinary tract symptoms; R63.0 Anorexia; R19.7 Diarrhea, unspecified; E86.0 Dehydration; E78.5 Hyperlipidemia, unspecified; R62.7 Adult failure to thrive; L03.116 Cellulitis of left lower limb; R60.0 Localized edema; L03.115 Cellulitis of right lower limb; I35.0 Nonrheumatic aortic (valve) stenosis; Z95.2 Presence of prosthetic heart valve; Z68.25 Body mass index [BMI] 25.0-25.9, adult; Z95.0 Presence of cardiac pacemaker
CPT/HCPCS: 96365; 99285; 80053; 83690; 85025 ×2; 36415 ×3; 74177; 96376 ×2; 96372 ×2; 96366 ×2; 96375 ×2; 84443; 83735 ×2; 84100; 80048 ×2; 83880; 82948 ×5; 81001; 93970; 87507; 84145; 85027; G0378 ×39; Q9967; J0690 ×6; J3490 ×3; J1650 ×2; J0360; J1815

== ENCOUNTER 2024-05-28 20:55 | Emergency (ER) | payer OTHER ==
[~2024-05-28] VITALS: Ht 180.3 cm; Wt 73.0 kg
[~2024-05-28 20:55] MED LIST changes: +DULA3PEN SQ; +LOPE2CAP PO
[2024-05-28 21:31] LABS: BASOPHILS # (AUTO) 0.02 K/uL (0.00-0.20); BASOPHILS % (AUTO) 0.2 % (0.0-5.0); EOSINOPHILS # (AUTO) 0.17 K/uL (0.00-0.70); EOSINOPHILS % (AUTO) 1.9 % (0.0-8.0); HEMATOCRIT 35.2 % (42-54); IMMATURE GRANULOCYTE ABSOLUTE 0.04 K/uL (0-1); LYMPHOCYTES # (AUTO) 0.8 K/uL (1.0-4.8); LYMPHOCYTES % (AUTO) 8.8 % (21.0-51.0); MEAN CORPUSCULAR HEMOGLOBIN 30.3 pg (27.0-33.0); MEAN CORPUSCULAR HGB CONC 34.1 g/dL (32.0-36.0); MEAN CORPUSCULAR VOLUME 88.9 fL (79-99); MONOCYTES # (AUTO) 0.7 K/uL (0.1-1.0); MONOCYTES % (AUTO) 8.1 % (3.0-13.0); NEUTROPHILS # (AUTO) 7.2 K/uL (1.8-7.7); NEUTROPHILS % (AUTO) 80.6 % (40.0-77.0); PLATELET COUNT (AUTO) 217 K/uL (130-400); RED BLOOD CELL COUNT(AUTO) 3.96 MIL/uL (4.50-6.20); RED CELL DISTRIBUTION WIDTH 14.5 % (11.0-15.5); WHITE BLOOD COUNT (AUTO) 8.9 K/uL (4.8-10.8)
[2024-05-28 21:33] LABS: INR 1.08 (0.85-1.15); PROTHROMBIN TIME 11.6 SEC (9.6-11.6)
[2024-05-28 21:35] LABS: PARTIAL THROMBOPLASTIN TIME 26.3 SEC (26.3-35.5)
[2024-05-28 21:37] LABS: CREATININE 0.9 mg/dL (0.5-1.3); POTASSIUM 3.8 mmol/L (3.5-5.1)
--- NOTE | 2024-05-28 21:43 | ERN ---
ED Note History of Present Illness Stated Complaint: DIFFICULTY SWALLOWING, CHEST PAIN, DARK URINE Chief Complaint: Multiple Complaints Time Seen by MD: 21:39 Dictation: PATIENT IS A 88-YEAR-OLD RETIRED HERE WITH MULTIPLE COMPLAINTS TO INCLUDE DIFFICULTY SWALLOWING IN HIS PENDING AN ESOPHAGEAL DILATION AT [facility] NEXT WEEK. HE ALSO IS COMPLAINING OF SHORTNESS A BREATH ON EXERTION WITH SWELLING IN HIS LEGS FOR THE LAST SEVERAL DAYS HAS A HISTORY OF A PACEMAKER AND CHF. HE ALSO STATES HIS URINE HAS BEEN VERY DARK RECENTLY AND HE IS MAKING LESS URINE THAN HE WAS BEFORE. HE AND HIS STATES HE HAS HAD NO FEVER NO CHILLS. PRIMARY CARE DOCTORS DR. RON CARRENO. Allergies: Coded Allergies: No Known Drug Allergies (Verified Allergy, Unknown, 09/13/17) Uncoded Allergies: GARLIC (Adverse Reaction, Severe, NAUSEA, VOMITING, GI UPSET, 11/12/14) WHISKEY (Adverse Reaction, Severe, NAUSEA, VOMITING, GI UPSET, 11/12/14) Home Meds Active Scripts Hydralazine HCl (Hydralazine HCl) 50 Mg Tablet, 50 MG PO QID, #120 TAB 2 Refills Prov:EASTON NATHAN Sr., MD 07/25/23 Reported Medications Dulaglutide (Trulicity) 3 Mg/0.5 Ml Pen.injctr, 3 MG SQ QWEEK 03/01/24 Finasteride (Finasteride) 5 Mg Tablet, 5 MG PO DAILY, TAB 03/01/24 Memantine HCl (Memantine HCl) 5 Mg Tablet, 5 MG PO BID, TAB 03/01/24 Tamsulosin HCl (Flomax) 0.4 Mg Cap.er.24h, 0.4 MG PO HS, CAPSULE. 03/01/24 Loperamide HCl (Loperamide) 2 Mg Capsule, 2 MG PO DAILY PRN for DIARRHEA, CAP 03/01/24 Memantine HCl (Memantine HCl) 5 Mg Tablet, 5 MG PO DAILYDINNER, TAB 07/24/23 Labetalol HCl (Labetalol HCl) 200 Mg Tablet, 200 MG PO PM, TAB 07/24/23 Labetalol HCl (Labetalol HCl) 100 Mg Tablet, 100 MG PO AM, TAB 07/24/23 Furosemide (Furosemide) 20 Mg Tablet, 1 TAB PO DAILY 04/14/23 Tamsulosin HCl (Flomax) 0.4 Mg Cap.er.24h, 0.4 MG PO HS 04/14/23 Finasteride (Finasteride) 5 Mg Tablet, 1 TAB PO HS 04/14/23 Pyridoxine HCl (Vitamin B-6) 100 Mg Tablet, 100 MG PO AM, TAB 04/14/23 Zinc Amino Acid Chelate (Zinc) 50 Mg Tablet, 50 MG PO AM, TAB 04/14/23 Vitamin E Mixed (Vitamin E) 400 Unit Capsule, 400 UNIT PO AM, CAP 04/14/23 Duloxetine HCl (Duloxetine HCl) 30 Mg Capsule.dr, 1 CAP PO DAILY 04/14/23 Docusate Sodium (Docusate Sodium) 100 Mg Capsule, 1 CAP PO BID 04/14/23 Potassium Chloride (K-Dur/Klor-Con) 10 Meq Ertab, 10 MEQ PO DAILY 04/14/23 Losartan Potassium (Losartan Potassium) 50 Mg Tablet, 1 TAB PO DAILY 04/14/23 Omeprazole (Omeprazole) 20 Mg Tablet.dr, 20 MG PO DAILY, TAB 09/13/17 Donepezil HCl (Aricept) 10 Mg Tablet, 10 MG PO DAILY, TAB 09/13/17 Trazodone HCl (Trazodone HCl) 50 Mg Tablet, 100 MG PO HSPRN PRN for INSOMNIA/SLEEP, TAB 09/13/17 Atorvastatin Calcium (Atorvastatin Calcium) 10 Mg Tablet, 10 MG PO HS, TAB 09/13/17 Aspirin (ASPIRIN 81 MG ECTAB) 81 Mg Ectab, 81 MG PO DAILY, TAB.EC 11/13/14 Past Medical History Past Medical History: Diabetes-Type II, Hypertension Additional Past Medical Hx: SKULL FX Surgical History: Pacer/AICD, Other Surgical History Other: RIGHT KNEE, RIGHT SHOULDER, AORTIC VALVE RN Note Reviewed/Agreed w/PFSH: Yes Review of System Dictation CONSTITUTIONAL: NEGATIVE EXCEPT FOR HPI HEAD/FACE: NEGATIVE EXCEPT FOR HPI EENT: NEGATIVE EXCEPT FOR HPIDIFFICULTY SWALLOWING RESPIRATORY: NEGATIVE EXCEPT FOR HPI SHORTNESS A BREATH EDEMA LOWER EXTREMITIES GASTROINTESTINAL/ABDOMINAL: NEGATIVE EXCEPT FOR HPI GENITOURINARY: NEGATIVE EXCEPT FOR HPI MUSCULOSKELETAL: NEGATIVE EXCEPT FOR HPI INTEGUMENTARY: NEGATIVE EXCEPT FOR HPI NEUROLOGICAL/PSYCH: NEGATIVE EXCEPT FOR HPI HEMATOLOGIC/LYMPHATIC: NEGATIVE EXCEPT FOR HPI ALL SYSTEMS NEGATIVE, EXCEPT NOTED ABOVE. 13 POINT REVIEW OF SYSTEMS ASSESSED AND ALL NEGATIVE EXCEPT FOR ABOVE. Initial Vital Sign VS Vital Signs Date Time Temp Pulse Resp B/P (MAP) Pulse Ox O2 Delivery O2 Flow Rate FiO2 05/28/24 20:57 98.8 70 20 129/59 96 Room Air 05/28/24 21:09 0 21 Physical Exam Dictation VITAL SIGNS REVIEWED GENERAL APPEARANCE: ALERT, ORIENTED X 3, MILD ACUTE DISTRESS, PATIENT APPEARS ELDERLY AND DEBILITATED. HEAD AND FACE: NON-TRAUMATIC. EYES: PERRL, PINK CONJUNCTIVAS, EYELID NO TRAUMA, ANTERIOR CHAMBER WITH ARCUS SENILIS. EARS: PINNAS INTACT AND NO SIGNS OF TRAUMA OR ERYTHEMA EAR CANALS CLEAR AND NO DISCHARGE TM NO ERYTHEMA NOSE: NO DISCHARGE, NO BLEEDING. OROPHARYNX: MOUTH NORMAL, TONGUE PINK, PHARYNX CLEAR,NO ERYTHEMA, TONSILS NO EXUDATES, NO ABSCESSES NOTED, MUCOUS MEMBRANE MOIST NECK: SUPPLE, NON-TENDER, NO THYROMEGALY, NO MASSES, NO JVD, NO BRUITS BREAST:DEFERRED CHEST:NO TENDERNESS, NO CREPITUS, NO PARADOXICAL MOVEMENT, NO RETRACTIONS LUNGS:CLEAR, WELL-VENTILATED, SYMMETRIC, NO RALES, NO WHEEZING, NO RHONCHI, NO STRIDOR, GOOD BREATH SOUNDS BILATERALLY HEART: REGULAR RATE, REGULAR RHYTHM, NO MURMUR, NO GALLOPS VASCULAR: 2+PERIPHERAL EDEMA TO KNEES., ABDOMEN: SOFT, POSITIVE BOWEL SOUNDS, NONDISTENDED, NO GUARDING, NONTENDER, NO REBOUND, NO MASSES NO HEPATOMEGALY, NO SPLENOMEGALY, NO HALEY'S SIGN, NO HERNIAS. RECTAL: DEFERRED GENITAL: DEFERRED NEUROLOGICAL: NORMAL SPEECH, MOTOR FUNCTION INTACT, SENSORY FUNCTION INTACT MUSCULOSKELETAL: NECK NONTENDER, FULL RANGE OF MOTION, BACK NONTENDER, FULL RANGE OF MOTION, EXTREMITIES: NONTENDER, FULL RANGE OF MOTION SKIN: COLOR PINK, DRY, NO TURGOR, NO RASH, NO LACERATIONS, NO ABRASIONS, NO CONTUSIONS. LYMPHATIC: DEFERRED Results (Laboratory/Radiology) Laboratory/Radiology Laboratory Tests Test 05/28/24 21:15 05/28/24 21:43 White Blood Count 8.9 K/uL (4.8-10.8) Red Blood Count 3.96 MIL/uL (4.50-6.20) L Hemoglobin 12.0 g/dL (14.0-18.0) L Hematocrit 35.2 % (42-54) L Mean Corpuscular Volume 88.9 fL (79-99) Mean Corpuscular Hemoglobin 30.3 pg (27.0-33.0) Mean Corpuscular Hemoglobin Concent 34.1 g/dL (32.0-36.0) Red Cell Distribution Width 14.5 % (11.0-15.5) Platelet Count 217 K/uL (130-400) Mean Platelet Volume 10.1 fL (7.5-10.5) Immature Granulocyte % (Auto) 0.4 % (0-1) Neutrophils (%) (Auto) 80.6 % (40.0-77.0) H Lymphocytes (%) (Auto) 8.8 % (21.0-51.0) L Monocytes (%) (Auto) 8.1 % (3.0-13.0) Eosinophils (%) (Auto) 1.9 % (0.0-8.0) Basophils (%) (Auto) 0.2 % (0.0-5.0) Neutrophils # (Auto) 7.2 K/uL (1.8-7.7) Lymphocytes # (Auto) 0.8 K/uL (1.0-4.8) L Monocytes # (Auto) 0.7 K/uL (0.1-1.0) Eosinophils # (Auto) 0.17 K/uL (0.00-0.70) Basophils # (Auto) 0.02 K/uL (0.00-0.20) Absolute Immature Granulocyte (auto 0.04 K/uL (0-1) Nucleated Red Blood Cells 0.0 % (0.0-0.19) White Cell Morphology Comment CONSISTENT W/DIFF Prothrombin Time 11.6 SEC (9.6-11.6) Prothromb Time International Ratio 1.08 (0.85-1.15) Activated Partial Thromboplast Time 26.3 SEC (26.3-35.5) Sodium Level 134 mmol/L (136-145) L Potassium Level 3.8 mmol/L (3.5-5.1) Chloride Level 99 mmol/L (101-111) L Carbon Dioxide Level 32 mmol/L (21-32) Blood Urea Nitrogen 13 mg/dL (7-18) Creatinine 0.9 mg/dL (0.5-1.3) Glomerular Filtration Rate Calc 83 mL/min (>90) Random Glucose 215 mg/dL (70-105) H Total Calcium 9.0 mg/dL (8.5-10.1) Magnesium Level 1.70 mg/dL (1.80-2.40) L Total Creatine Kinase 130 U/L (21-232) # Troponin I High Sensitivity 64 ng/L (4-75) B-Type Natriuretic Peptide 120 pg/mL (0-100) H Troponin I < 0.05 ng/mL (0.00-0.05) 2315, CHEST X-RAY NEGATIVE EXCEPT FOR PACEMAKER Labs Reviewed?: Yes EKG Comment: EKG AV paced rhythm / heart rate 72/ left ventricular conduction changes in multiple leads. No ST elevation or acute coronary syndrome per MD. ED Course ED Course Orders Procedure Category Date Status Time Vital Signs Per CPOE 05/28/24 Transmitted Routine 21:04 B-Type Natriuretic LAB 05/28/24 Complete Peptide 21:04 Chest 1vw RAD 05/28/24 Taken 21:04 12 Lead Ekg Tracing- EKG 05/28/24 Logged Technical 21:04 Oxygen By Nc/Pulse Ox CPOE 05/28/24 Transmitted 21:04 Maintain Iv CPOE 05/28/24 Transmitted 21:04 Iv Insertion CPOE 05/28/24 Transmitted 21:04 Cardiac Monitoring CPOE 05/28/24 Transmitted 21:04 Pulse Oximetry With CPOE 05/28/24 Transmitted Vs And Prn 21:04 Cbc With Differential LAB 05/28/24 Complete 21:04 Activity: Br W/Brp CPOE 05/28/24 Transmitted With Assist 21:04 Creatine Kinase, Total LAB 05/28/24 Complete 21:04 Urinalysis Profile LAB 05/28/24 Logged 21:04 Troponin Poc Order LAB 05/28/24 Logged Only 21:04 Bedside Troponin-I LAB.ER 05/28/24 In Process (Poc) 21:04 Basic Metabolic Panel LAB 05/28/24 Complete 21:04 Pt And Ptt LAB 05/28/24 Complete 21:05 Troponin I High LAB 05/28/24 Complete Sensitivity 21:05 Magnesium LAB 05/28/24 Complete 21:05 Covid19 (Sars Antigen LAB 05/28/24 Logged Rapid) 21:40 Vital Signs Date Time Temp Pulse Resp B/P (MAP) Pulse Ox O2 Delivery O2 Flow Rate FiO2 05/28/24 21:09 97.0 74 20 136/59 98 Room Air* 0 21 05/28/24 20:57 98.8 70 20 129/59 96 Room Air 2320, PATIENT WISHES TO BE DISCHARGED HOME NO ACUTE FINDINGS FOUND CHEST X-RAY CLEAR BNP NOT ELEVATED. WE WILL DISCHARGED HOME PATIENT TO FOLLOW UP WITH HIS DOCTOR AND GIVE HEART Score Response (Comments) Value EKG: Repolarization changes 1 Age: > 65yrs (+2) 2 Risk Factors: 3+ risk factors (+2) 2 Initial Troponin: Normal limit (0) 0 Total 5 Medical Decision Making MDM MDM: DIFFERENTIAL DIAGNOSIS: ACS/AMI / CHF/ FLUID OVERLOAD / ELECTROLYTE IMBALANCE / DEHYDRATION /PNEUMONIA/ BRONCHITIS RATIONALE: TESTS CONSIDERED AND ORDERED SECONDARY TO SHARED DECISION MAKING INCLUDE: EKG/RADIOLOGY/ LABS PREVIOUS OUTSIDE RECORDS REVIEWED: OLD ER VISITS. REVIEWED RISK OF COMPLICATION AND/OR MORBIDITY OR MORTALITY OF PATIENT MANAGEMENT: NONE MEDICATIONS-PER MEDICATION RECONCILIATION SEE NURSE'S NOTES NEED FOR HOSPITALIZATION: PATIENT DOES NOT MEET CRITERIA FOR HOSPITALIZATION. NO NEED FOR EMERGENCY MAJOR/MINOR SURGERY: NO THERE ARE NO SOCIAL CONCERNS WITH THIS PATIENT. PRESCRIPTION DRUG MANAGEMENT ALBUTEROL MDI PRESCRIPTIONS WILL INCLUDE SYMPTOMATIC CARE PATIENT'S PRIOR EXTERNAL MEDICAL RECORDS FROM OTHER ER VISITS WERE REVIEWED BY ME INDICATED. PRIOR TESTING AND RESULTS FROM PREVIOUS VISITS WERE REVIEWED. PRIOR TESTS WERE TAKEN INTO ACCOUNT WITH MEDICAL DECISION MAKING AND RESOURCE UTILIZATION, INDEPENDENT HISTORIAN/HISTORIANS WERE USED TO OBTAIN COMPLETE MEDICAL HISTORY. I INDEPENDENTLY INTERPRETED THE TEST THAT WERE PERFORMED, RESULTS WERE REVIEWED BY ME AND CONSIDERED FINDINGS ON RADIOLOGY IF ORDERED. MEDICAL MANAGEMENT AND EXAMINATION INTERPRETATION DISCUSSIONS WERE HAD BY ME WITH OTHER QUALIFIED HEALTHCARE PROFESSIONALS INDICATED FOR THE PATIENT'S CARE. DX & DISP Disposition: Discharge Departure Impression: Primary Impression: Shortness of breath Additional Impressions: Chronic anemia, Hypomagnesemia, Pacemaker Condition: Stable Scripts Magnesium Oxide/Mag Aa Chelate (Magnesium 300 mg Capsule) 300 Mg Capsule 300 MG PO DAILY for 10 Days, #10 CAP 0 Refills Prov: YOLANDE CASTANON GUIDANCE DIRECTOR 05/28/24 Albuterol Sulfate (Ventolin Hfa/Proventil Hfa/Proair Hfa) 90 Mcg Puff 2 PUFF IH Q4H for WHEEZING, #1 INHALER 0 Refills Prov: YOLANDE CASTANON GUIDANCE DIRECTOR 05/28/24 Additional Instructions: FOLLOW-UP WITH PRIMARY CARE PROVIDER IN 1 TO 2 DAYS. TAKE MEDICATIONS DIRECTED HERE IN THE EMERGENCY ROOM. OKAY TO CONTINUE HOME MEDICATIONS UNLESS OTHERWISE DISCUSSED DURING YOUR VISIT IN THE EMERGENCY ROOM TODAY. RETURN TO YOUR NEAREST EMERGENCY ROOM IF SYMPTOMS WORSEN OR IF THERE IS NO IMPROVEMENT. CALL 911 IF YOU NEED IMMEDIATE ASSISTANCE. TAKE TYLENOL OR MOTRIN [id number] NEEDED AND IF NO CONTRAINDICATIONS ARE PRESENT. INCREASE ORAL HYDRATION. A WOUND CULTURE OR URINE CULTURE WAS ORDERED HERE IN THE EMERGENCY ROOM DEPARTMENT PLEASE FOLLOW-UP WITH PRIMARY CARE PROVIDER AND ADVISE THEM TO GET REPEAT PORTS FROM OUR FACILITY. IF YOU HAD ANY FREEDOM WRAP/SPLINTS THAT WERE APPLIED HERE, PLEASE DO NOT REMOVE THEM UNTIL YOU SEE YOUR PRIMARY CARE OR SPECIALTY. USE ALBUTEROL INHALER EVERY 4 HOURS WHILE AWAKE FOR THE NEXT TWO DAYS. TAKE MAGNESIUM DIRECTED UNTIL GONE. SEE YOUR PRIMARY CARE DOCTOR FOR FOLLOW UP Referrals: KAHLIL MOONEY MD (PCP) Time of Disposition: 23:21 I have reviewed the case, and I agree with, Diagnosis and Plan YOLANDE CASTANON NP May 28, 2024 21:42
[2024-05-28 21:50] LABS: B-TYPE NATRIURETIC PEPTIDE 120 pg/mL (0-100); WBC MORPHOLOGY CONSISTENT W/DIFF
[2024-05-28] MEDS ORDERED: MAGN300C PO (23:23)
[2024-05-28] MEDS ORDERED: ALBUHFA IH (23:23)
[2024-05-28 23:35] VITALS: BP 131/62; PULSE 71; RESP 18; TEMP 98.8; O2SAT 98
--- NOTE | 2024-05-29 07:50 | EKG ---
[facility] Test Date: 2024-05-28 Test Time: 20:58:09 Pat Name: ASH BANEGAS Department: ED Room: Gender: Male Supervisor [employer]: [id number] : [id number] Requested By: IRIS RUDOLPH Order Number: [id number] Reading MD: Measurements Intervals [place] Rate: 72 P: 87 UT: 164 QRS: -15 QRSD: 170 T: 147 QT: 452 QTc: 495 Interpretive Statements Atrial-sensed ventricular-paced complexes IVCD, consider LBBB ST elevation secondary to IVCD No previous ECG available for comparison Please click the below link to view image of tracing.
--- NOTE | 2024-05-29 08:26 | HMCIMG ---
CHEST 1VW REASON: CHEST PAIN COMPARISON: 09/03/2023 FINDINGS: Single view of the chest was obtained. Lungs are clear. Heart size is normal. There is no pulmonary vascular congestion. Mediastinum and bony thorax appear unremarkable. There is a bipolar pacemaker, unchanged. 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 IMPRESSION: 1. No acute finding, no change.
== END 2024-05-28 23:36 | disposition home or self-care (01) ==
LOC: EDH 20:55
DX: D64.89 Other specified anemias (principal); E83.42 Hypomagnesemia; R06.02 Shortness of breath; E11.9 Type 2 diabetes mellitus without complications; I10 Essential (primary) hypertension; Z79.82 Long term (current) use of aspirin; Z79.899 Other long term (current) drug therapy; Z95.810 Presence of automatic (implantable) cardiac defibrillator
CPT/HCPCS: 36415; 71045; 80048; 82550; 83735; 83880; 84484; 85025; 85610; 85730; 93005; 99285

== ENCOUNTER 2024-09-06 07:33 | Day surgery (SDC) | payer OTHER ==
[2024-09-06] VITALS (9 sets, daily range): BP systolic 120–158; BP diastolic 62–85; PULSE 65–79; RESP 14–17; TEMP 97.3–98.4
[~2024-09-06] VITALS: Ht 180.3 cm; Wt 74.4 kg
[~2024-09-06 07:33] MED LIST changes: -DOCU100C33 PO; +DONE-53 PO; -DONE10TA8 PO; -DULO30CA52 PO; -HYDR50TA37 PO; -LABE200T7 PO; -LOPE2CAP PO; +MAGN500C4 PO; -PYRI100T10 PO; +VIBE75TA PO
[2024-09-06] MEDS: 0.9%NACL 1000ML 1,000 ML IV ONE (08:45)
[2024-09-06] MEDS ORDERED: proPOFol 10 MG/ML 20ML VIAL IV ONE (09:59)
== END 2024-09-06 11:30 | disposition home or self-care (01) ==
LOC: ENDO 07:33 → DAH 07:33 → ENDO 11:30
PROVIDERS: ATTEND Internal Medicine Gastroenterology
DX: R13.10 Dysphagia, unspecified (principal); K31.7 Polyp of stomach and duodenum; K29.70 Gastritis, unspecified, without bleeding; R63.30 Feeding difficulties, unspecified; K57.30 Diverticulosis of large intestine without perforation or abscess without bleeding; R12 Heartburn; K44.9 Diaphragmatic hernia without obstruction or gangrene; R63.4 Abnormal weight loss; F41.9 Anxiety disorder, unspecified; F32.A Depression, unspecified; I10 Essential (primary) hypertension; I25.10 Atherosclerotic heart disease of native coronary artery without angina pectoris; E11.9 Type 2 diabetes mellitus without complications; E78.5 Hyperlipidemia, unspecified; Z95.0 Presence of cardiac pacemaker; Z79.82 Long term (current) use of aspirin; Z79.899 Other long term (current) drug therapy
CPT/HCPCS: 43251; 82948 ×2; 43239; J7030 ×2; J2704; A4620; A4215 ×2; A4223; A4222; A4221; A4663; A4606; J3490

== ENCOUNTER → 2024-10-23 | Outpatient (CLI) | payer OTHER ==
[~2024-10-23] MED LIST changes: -TAMS-1 PO; +TAMS-55 PO
[2024-10-23 12:32] LABS: BASOPHILS # (AUTO) 0.05 K/uL (0.00-0.20); BASOPHILS % (AUTO) 0.8 % (0.0-5.0); EOSINOPHILS # (AUTO) 0.12 K/uL (0.00-0.70); HEMATOCRIT 38.1 % (42-54); IMMATURE GRANULOCYTE ABSOLUTE 0.01 K/uL (0-1); LYMPHOCYTES # (AUTO) 1.1 K/uL (1.0-4.8); MEAN CORPUSCULAR HEMOGLOBIN 30.5 pg (27.0-33.0); MEAN CORPUSCULAR HGB CONC 32.8 g/dL (32.0-36.0); MEAN CORPUSCULAR VOLUME 92.9 fL (79-99); MONOCYTES # (AUTO) 0.5 K/uL (0.1-1.0); MONOCYTES % (AUTO) 7.5 % (3.0-13.0); NEUTROPHILS # (AUTO) 4.2 K/uL (1.8-7.7); NEUTROPHILS % (AUTO) 70.5 % (40.0-77.0); PLATELET COUNT (AUTO) 234 K/uL (130-400); RED CELL DISTRIBUTION WIDTH 14.1 % (11.0-15.5)
[2024-10-23 13:29] LABS: ALBUMIN 3.7 g/dL (3.5-5.0); BILIRUBIN,TOTAL 0.6 mg/dL (0.2-1.0); CREATININE 1.1 mg/dL (0.5-1.3); MAGNESIUM 1.8 mg/dL (1.80-2.40); POTASSIUM 4.2 mmol/L (3.5-5.1); THYROID STIMULATING HORMONE 1.78 uIU/mL (0.36-3.74); TOTAL PROTEIN, SERUM 6.5 g/dL (6.0-8.3)
== END | disposition home or self-care (01) ==
LOC: LAB 09:54
PROVIDERS: ATTEND Student in an Organized Health Care Education/Training Program
DX: I49.3 Ventricular premature depolarization (principal); I73.9 Peripheral vascular disease, unspecified; I44.7 Left bundle-branch block, unspecified; E78.5 Hyperlipidemia, unspecified; R19.7 Diarrhea, unspecified; R60.9 Edema, unspecified; Z79.899 Other long term (current) drug therapy
CPT/HCPCS: 36415; 80053; 82306; 82607; 83735; 84443; 85025